=== PATIENT | male | born 1975 | race Caucasian/White ===

== ENCOUNTER → 2024-08-06 | Outpatient (CLI) | payer BC ==
[2024-08-06 15:09] LABS: Basophils # (A) 0.08 X 10*3/uL (0.00-0.10); Eosinophils # (A) 0.09 X 10*3/uL (0.04-0.35); Eosinophils % (A) 1.1 %; HCT 51.5 % (39.6-50.0); HGB 16.3 g/dL (13.0-17.0); Lymphocytes # (A) 2.53 X 10*3/uL (0.90-5.00); Lymphocytes % (A) 32.1 %; MCH 29.3 pg (27.0-32.0); MCHC 31.7 g/dL (32.0-37.0); MCV 92.5 FL (80.0-97.0); Mean Platelet Volume 11.7 FL (9.5-12.2); Monocytes # (A) 0.69 X 10*3/uL (0.20-1.00); Monocytes % (A) 8.8 %; NRBC Per 100 WBC 0 X 10*3/uL (0.00-0.01); Neutrophils % (A) 55.9 %; Platelet Count 250 X 10*3/uL (140-440); RBC 5.57 X 10*6/uL (4.40-5.60); RDW 12.4 % (11.5-14.5); WBC 7.88 X 10*3/uL (4.50-10.00)
[2024-08-06 15:23] LABS: Blood Urea Nitrogen 14.4 mg/dL (9.0-27.0); Calcium 9.5 mg/dL (8.7-10.3); Chloride 106 mmol/L (96-109); Glucose 152 mg/dL (70-110); Potassium 4.9 mmol/L (3.5-5.5); Sodium 143 mmol/L (135-145)
[2024-08-06 16:16] LABS: Appearance,Urine Clear (Clear); Bilirubin,Urine Negative (Negative); Blood,Urine Negative (Negative); Color,Urine Yellow (Yellow); Ketones,Urine Negative (Negative); Nitrite,Urine Negative (Negative); Specific Gravity,Urine 1.032 (1.001-1.030); Urobilinogen,Urine 0.2
== END | disposition home or self-care (01) ==
LOC: LABPAT 10:02
PROVIDERS: ATTEND Urology
DX: Z01.818 Encounter for other preprocedural examination
CPT/HCPCS: 80048; 81003; 85025; 87086

== ENCOUNTER 2024-08-13 05:54 | Day surgery (SDC) | payer BC ==
--- NOTE | 2024-08-08 12:35 | P.HPIHPCON ---
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 Discussed given the evidence of hydronephrosis I do recommend proceeding with stone removal. He agreed to proceed with a right-sided PCNL aware the risk which includes but not limited to bleeding, infection, injury to nearby organs which includes the liver, lung, and bowel. Risk of anesthesia was also discussed. He understood all the risk and agreed to proceed Consent for Procedure: I have explained the operation/procedure to the patient, including the risks, benefits, side effects, alternative therapies (including not receiving the proposed treatment or service), the likelihood of the patient achieving his/her goals, and potential recuperation problems for the procedure/sedation/analgesia, as well as any blood products, if indicated. I also explained to the patient the risks, benefits and side effects of the alternatives, as well as the risks related to not receiving the proposed procedure, care, treatment, or services. Past Medical History Past Medical History: Diabetes Mellitus, Hyperlipidemia, Hypertension Additional Past Medical History / Comment(s): Type II DM, kidney stone 3 cm and 3 smaller ones History of Any Multi-Drug Resistant Organisms: None Reported Past Surgical History: Tonsillectomy Past Anesthesia/Blood Transfusion Reactions: No Reported Reaction Smoking Status: Never smoker - Past Family History Father Family Medical History: Myocardial Infarction ([place]) Additional Family Medical History / Comment(s): age 69 Mother Family Medical History: Cancer Additional Family Medical History / Comment(s): uterine cancer Medications and Allergies Home Medications Medication Instructions Recorded Confirmed Type Aspirin [[place] Aspirin EC] 81 mg PO QAM 08/07/24 08/07/24 History Dapagliflozin Propanediol [Farxiga] 10 mg PO QAM 08/07/24 08/07/24 History Fenofibrate,Micronized 1 tab PO HS 08/07/24 08/07/24 History [Fenofibrate] Pravastatin Sodium [Pravachol] 80 mg PO HS 08/07/24 08/07/24 History amLODIPine [Norvasc] 1 tab PO QAM 08/07/24 08/07/24 History lisinopriL 40 mg PO QAM 08/07/24 08/07/24 History metFORMIN HCL 1,000 mg PO BID 08/07/24 08/07/24 History Allergies Allergy/AdvReac Type Severity Reaction Status Date / Time No Known Allergies Allergy Verified 08/07/24 11:36 Surgical - Exam - General no distress, no pain - Eyes normal ocular movement, no pale - ENT normal nares, normal mucosa - Respiratory normal expansion, normal respiratory effort - Abdomen Abdomen: soft, non tender - Psychiatric oriented to time, oriented to person, oriented to place Assessment and Plan Assessment: OR for right PCNL
[2024-08-13] MEDS ORDERED: HYDROmorphone 0.5 MG/0.5 ML SYRINGE IVP PRN (07:00)
[2024-08-13] MEDS ORDERED: MIDAZOLAM 2 MG/2 ML VIAL IV PRN (07:00)
[2024-08-13] MEDS: ONDANSETRON 4 MG/2 ML VIAL IVP ONE (07:19)
[2024-08-13] MEDS: SCOPOLAMINE 1 MG/72 HR PATCH TRANSDERM ONE (07:19)
[2024-08-13] MEDS: LACTATED RINGERS 1,000 ML IV SCH (07:19)
[2024-08-13] MEDS: DEXAMETHASONE SOD PHOSPHATE 4 MG/ML 1 ML VIAL IV ONE (07:19)
[2024-08-13 07:24] LABS: Glucose,Whole Blood 281 mg/dL (70-110)
[2024-08-13] MEDS: IV FLUID CONTINUATION 1,000 ML IV ONE ×2 (07:27→10:04)
[2024-08-13] MEDS ORDERED: LIDOCAINE 1% INJ 10MG/ML (20 ML MDV) ONE (07:35)
[2024-08-13] MEDS ORDERED: GLYCOPYRROLATE 0.2 MG/ML 2 ML VIAL ONE (07:35)
[2024-08-13] MEDS ORDERED: MIDAZOLAM 2 MG/2 ML VIAL ONE (07:35)
[2024-08-13] MEDS ORDERED: fentaNYL (PF) 50 MCG/ML 2 ML AMP ONE (07:35)
[2024-08-13] MEDS ORDERED: PHENYLEPHRINE 10 MG/ML VIAL ONE (07:35)
[2024-08-13] MEDS ORDERED: ROCURONIUM 10 MG/ML (5 ML VIAL) IV ONE (07:35)
[2024-08-13] MEDS ORDERED: HYDROmorphone (PF) 1 MG/ML ONE (07:35)
[2024-08-13] MEDS ORDERED: NEOSTIGMINE 1 MG/ML 10 ML VIAL ONE (07:35)
[2024-08-13] MEDS ORDERED: SUCCINYLCHOLINE CHLORIDE 200 MG/10 ML VIAL IV ONE (07:35)
[2024-08-13] MEDS ORDERED: PROPOFOL 10 MG/ML 20 ML VIAL IV ONE (07:35)
[2024-08-13] MEDS ORDERED: MAG HYDROX/AL HYDROX/SIMETH 30 ML CUP PO PRN (07:41)
[2024-08-13] MEDS ORDERED: ONDANSETRON 4 MG/2 ML VIAL IVP PRN (07:41)
[2024-08-13] MEDS ORDERED: HYDROcodone/APAP 5-325MG 1 EACH TAB PO PRN (07:42)
[2024-08-13] MEDS: IOPAMIDOL-370 100ML BTL MISCELLANE ONE (08:17)
--- NOTE | 2024-08-13 08:38 | XR ---
EXAMINATION TYPE: XR KUB DATE OF EXAM: 08/13/2024 Comparison: None Clinical History: 49-year-old male preop right renal stone, N20.0 renal stone Findings: There is a large 3.7 cm staghorn calculus on the right. Additional smaller calcification mid and lowe r pole right kidney measuring up to 1.4 cm and 9 mm. Moderate stool burden. Nonobstructive bowel gas pattern. Impression: Staghorn and additional smaller calculi right kidney measuring up to 3.7 cm. [facility], , 08/13/2024 8:35 AM
--- NOTE | 2024-08-13 09:38 | P.PCN ---
Date of Procedure: 08/13/24 Preoperative Diagnosis: Stone large, right renal Postoperative Diagnosis: Same Procedure(s) Performed: Percutaneous access to right kidney Anesthesia: TORIE Surgeon: Porfirio Brumfield Pathology: none sent Condition: stable Indications for Procedure: The patient has a staghorn calculus in the right kidney. is going to do a right percutaneous nephrostolithotomy. I've been asked to perform percutaneous access to the right kidney. Description of Procedure: The patient has been previously anesthetized. He has had a ureteral catheter placed up into the right kidney. He's placed in prone position with a sterile prep and drape. Under fluoroscopy we first injected air through the ureteral catheter to outline the anatomy of the right kidney. I identify an upper pole calyx is quite dilated and full of air. A 21-gauge Chiba needle is then passed into the calyx. I then pass a cope mandrel wire through the Chiba needle. I then pass a 6-Cuban ureteral dilator over the wire into the collecting system. I removed the cope wire. I then place an 035 Lubriglide glide wire into the kidney. I removed the 6-Cuban dilator and then pass a 6-Cuban Kumpe catheter over the wire and direct the wire down the ureter. I advanced the Kumpe catheter over the wire into the ureter. I then removed the Lubriglide wire in place an 035 Super Stiff wire down the ureter. Over the superstiff wire then pass an 8-Cuban 10-Cuban dilating catheter. Through the 10-Cuban catheter pass a second wire down the ureter. Over the working wire then dilate the right nephrostomy track into the collecting system. In the 30-Cuban sheath is placed in the collecting system confirmed endoscopically.
[2024-08-13] MEDS: LACTATED RINGERS 1,000 ML IV ONE (09:59)
[2024-08-13 10:21] LABS: Glucose,Whole Blood 222 mg/dL (70-110)
[2024-08-13] MEDS: INSULIN ASPART (NovoLOG) 100 UNIT/ML VIAL SQ ONE (10:46)
--- NOTE | 2024-08-13 12:28 | P.OP ---
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 Discussed given the evidence of hydronephrosis I do recommend proceeding with stone removal. He agreed to proceed with a right-sided PCNL aware the risk which includes but not limited to bleeding, infection, injury to nearby organs which includes the liver, lung, and bowel. Risk of anesthesia was also discussed. He understood all the risk and agreed to proceed Description of Procedure: Patient brought the operating room, general anesthesia was induced. He was placed in a frog-leg position on the OR stretcher. Next a cystoscopy with a 22 Wallisian sheath was inserted per urethra, brief cystoscopy was performed showed no abnormality within the bladder. The right ureteral orifice was visualized and intubated with a sensor wire. At this time the cystoscope was withdrawn with the wire in place. Next a balloon occlusion catheter was passed over the wire. The 16 Fr shirley catheter was placed and the tube was secured to the catheter. At this point the patient was placed in prone position, all pressure points were padded. The right flank was prepped and draped in sterile fashion. Access was obtained by Dr. Brumfield at the mid pole above the 12th rib. Please see his procedure note for that portion of the case. After 2 wires were visualized down the ureter at this point a 30 Wallisian NephroMax balloon was passed over the wire and the tract was dilated under fluoroscopy. Next the 30 Wallisian access sheath was passed over the balloon dilator and into the kidney. At this time the rigid nephroscope was inserted through the access sheath, a large stone was encountered in the renal pelvis extending to the lower pole which was broken up using the cyber wand. An additional small stone was also encountered in the lower pole which was also fragmented. At this time using the grasper all sizable fragments were removed.. Repeat renoscopy showed no additional stones. This time I switched to the flexible cystoscope and a complete renoscopy was also performed showed no additional stones, on fluoroscopy there was no evidence of any radiopaque densities. At this time the nephroscope was withdrawn and a 12 Wallisian nephrostomy tube was passed over the wire, antegrade nephrostogram was performed showed no filling defect and contrast was seen draining down the ureter. At this time the access sheath was removed with the nephrostomy tube in place, the medial aspect of the incision was closed with 2-0 Vicryl, lateral aspect of the incision was closed with 2-0 silk and this was secured to the tube. Sterile dressing was applied. Patient was awakened from anesthesia and taken to recovery in stable condition
[2024-08-13] MEDS: HYDROmorphone 1 MG/ML 1 ML SYRINGE IVP PRN (13:38)
--- NOTE | 2024-08-13 14:47 | FL ---
EXAMINATION TYPE: FL Perc Nephrostomy New Access DATE OF EXAM: 08/13/2024 COMPARISON: NONE HISTORY: 49-year-old male right renal stone intervention TECHNIQUE: Fluoroscopy. FINDINGS: Fluoroscopic guidance was provided during procedure performed by Dr. Olson. A total of 2 minutes 10 seconds of fluoroscopic time was utilized during the procedure and two spot images was ac quired. Total dose area product (DAP) in uGy*m?, mGy*cm? (or similar): 0.15579 . IMPRESSION: As Above. [facility], , 08/13/2024 2:45 PM
[2024-08-13] MEDS: SODIUM CHLORIDE 0.9% 1,000 ML IV SCH (17:15)
[2024-08-13] MEDS: KETOROLAC 15 MG/ML 1 ML VIAL IVP SCH (17:18)
[2024-08-13] MEDS: PRAVASTATIN SODIUM 80 MG TAB PO SCH (21:01)
[2024-08-13] MEDS: metFORMIN 500 MG TAB PO SCH (21:01)
[2024-08-13] MEDS: HEPARIN SODIUM,PORCINE 5,000 UNIT/ML 1 ML VIAL SQ SCH (21:05)
[2024-08-14] MEDS: ACETAMINOPHEN TAB 325 MG TAB PO PRN (08:51)
[2024-08-14] MEDS: DAPAGLIFLOZIN PROPANEDIOL 10 MG TABLET PO SCH (08:52)
[2024-08-14] MEDS: amLODIPine 2.5 MG TAB PO SCH (08:52)
[2024-08-14] MEDS: lisinopriL 20 MG TAB PO SCH (08:54)
--- NOTE | 2024-08-14 12:40 | P.DS ---
Providers Expected date of discharge: 08/14/24 Attending physician: Phil Olson MD Primary care physician: [facility] Course: On the day of admission, the patient underwent an uncomplicated right percutaneous nephrolithotomy (PCNL). The perioperative course was unremarkable. He remained afebrile with stable vital signs. On the first postoperative day, the patient reported only mild discomfort at the nephrostomy tube site. Both the nephrostomy tube and James catheter were draining blood-tinged urine. Procedures: Right PCNL on . Patient Condition at Discharge: Good Plan - Discharge Summary Discharge Rx Participant: No New Discharge Prescriptions: New Ketorolac [Toradol] 10 mg PO Q6HR PRN #10 tab PRN Reason: Pain No Action metFORMIN HCL 1,000 mg PO BID lisinopriL 40 mg PO QAM Dapagliflozin Propanediol [Farxiga] 10 mg PO QAM Aspirin [[place] Aspirin EC] 81 mg PO QAM amLODIPine [Norvasc] 1 tab PO QAM Pravastatin Sodium [Pravachol] 80 mg PO HS Fenofibrate,Micronized [Fenofibrate] 1 tab PO HS Discharge Medication List Aspirin [[place] Aspirin EC] 81 mg PO QAM 08/07/24 [History] Dapagliflozin Propanediol [Farxiga] 10 mg PO QAM 08/07/24 [History] Fenofibrate,Micronized [Fenofibrate] 1 tab PO HS 08/07/24 [History] Pravastatin Sodium [Pravachol] 80 mg PO HS 08/07/24 [History] amLODIPine [Norvasc] 1 tab PO QAM 08/07/24 [History] lisinopriL 40 mg PO QAM 08/07/24 [History] metFORMIN HCL 1,000 mg PO BID 08/07/24 [History] Ketorolac [Toradol] 10 mg PO Q6HR PRN #10 tab 08/14/24 [Rx] Follow up Appointment(s)/Referral(s): Phil Olson MD [STAFF PHYSICIAN] - 08/19/24 Activity/Diet/Wound Care/Special Instructions: Discharge home with nephrostomy tube. Reviewed nephrostomy tube care with the patient. Drink plenty of fluids, and avoid strenuous activity. Okay to shower. Hold aspirin. Resume other home medications. Discharge Disposition: HOME SELF-CARE
[2024-08-14 12:58] VITALS: BP 128/74; PULSE 85; RESP 15; TEMP 98
== END 2024-08-14 14:55 | disposition home or self-care (01) ==
LOC: OR 05:54 → 5NMEDONC 10:03 → OR 08-14 14:55
PROVIDERS: ATTEND Urology
DX: N20.0 Calculus of kidney
CPT/HCPCS: 50432; 74018; 82365; 86850; 86900; 86901